=== PATIENT | female | born 1940 | race Caucasian/White ===

== ENCOUNTER → 2018-02-01 | Outpatient (CLI) | payer OTHER ==
--- NOTE | 2018-02-01 13:51 | RAD ---
Lumbar spine, 3 views, 02/01/2018: History: Low back pain There is a mild right convexity thoracolumbar scoliosis. The bony structures are demineralized. The lumbar vertebral heights are well-maintained. There are mild scattered marginal spurs. There are moderate degenerative changes involving the facet joints in the lower lumbar spine. Aortic calcific plaquing is present. IMPRESSION: 1. Demineralization. 2. Lumbar scoliosis. 3. Mild to moderate degenerative change. 4. No acute bony abnormality is detected.
== END | disposition home or self-care (01) ==
LOC: DXRAD 12:03
PROVIDERS: ATTEND Nurse Practitioner Family
DX: M41.86 Other forms of scoliosis, lumbar region (principal); M47.896 Other spondylosis, lumbar region; M81.8 Other osteoporosis without current pathological fracture
CPT/HCPCS: 72100

== ENCOUNTER → 2018-04-19 | Outpatient (CLI) | payer OTHER ==
[2018-04-19 19:10] LABS: THYROXINE 7.8 ug/dL (4.5-12.0)
== END | disposition home or self-care (01) ==
LOC: LAB 11:26
PROVIDERS: ATTEND General Practice
DX: E03.9 Hypothyroidism, unspecified (principal)
CPT/HCPCS: 36415; 84436; 84443; 84480

== ENCOUNTER → 2019-03-06 | Outpatient (CLI) | payer OTHER ==
--- NOTE | 2019-03-06 16:23 | RAD ---
Examination: Frontal view of the abdomen HISTORY: History of left upper quadrant pain, chronic constipation. COMPARISON: None available FINDINGS: The bibasilar lungs are clear. The bowel gas pattern appears unremarkable. Large amount of stool identified in the colon and rectum. Mild degenerative changes thoracolumbar spine. Mild lumbar scoliosis. IMPRESSION: Large amount of stool identified in the colon and rectum likely constipation. Electronically signed by: Vamshi Mullen MD (03/06/2019 4:21 PM) [place] [id number]
== END | disposition home or self-care (01) ==
LOC: LAB 11:05
PROVIDERS: ATTEND General Practice
DX: K59.09 Other constipation (principal); M47.815 Spondylosis without myelopathy or radiculopathy, thoracolumbar region; M41.86 Other forms of scoliosis, lumbar region
CPT/HCPCS: 74018

== ENCOUNTER → 2020-03-04 | Outpatient (CLI) | payer MEDICARE, MEDICAID ==
--- NOTE | 2020-03-04 09:31 | RAD ---
PELVIS COMPLETE History: Dysuria. Pelvic pain. Comparison: None. Technique: Grayscale and color Doppler imaging of the pelvis was performed using transabdominal technique. Patient refused transvaginal imaging. Findings: The uterus measures 5.2 x 4.6 x 2.3 cm in length. Uterus has an unremarkable appearance. The endometrial stripe measures 2 mm. Small amount of fluid within the endometrial canal. Bilateral ovaries not identified due to positioning and overlying bowel gas. No adnexal masses are seen. No free fluid. IMPRESSION: 1. Minimal nonspecific fluid within the endometrial canal. No significant endometrial thickening. Electronically signed by: Jenaro Sahu DO (03/04/2020 9:28 AM) [id number]
== END | disposition home or self-care (01) ==
LOC: US 08:58
PROVIDERS: ATTEND Family Medicine
DX: R30.0 Dysuria (principal); R10.2 Pelvic and perineal pain
CPT/HCPCS: 76856

== ENCOUNTER → 2020-06-10 | Outpatient (CLI) | payer MEDICARE, MEDICAID ==
--- NOTE | 2020-06-10 15:19 | RAD ---
EXAM: BILATERAL DIGITAL SCREENING MAMMOGRAPHY. HISTORY: Routine mammographic screening. TECHNIQUE: Bilateral full field digital images were obtained in CC and MLO projections. Computer-aided detection was applied. COMPARISON: 06/06/2019. COMPOSITION: B. There are scattered areas of fibroglandular density. FINDINGS: There are no suspicious masses, microcalcifications or architectural distortion. The parenchymal pattern is stable. Coarse and vascular calcifications are benign. BI-RADS CATEGORY 2: Benign. RECOMMENDATION: 1. Routine screening mammography in one year. If mammography demonstrates dense breast tissue (heterogenously dense or extremely dense, category C or D), which could hide abnormalities, and if other risk factors for breast cancer have been identified, supplemental screening tests that may be suggested by the ordering physician may be of benefit. Dense breast tissue, in and of itself, is a relatively common condition. Therefore, this information is not provided to cause undue concern, but rather to raise awareness and to promote discussion with the referring physician regarding the presence of other risk factors, in addition to dense breast tissue. The results of this mammography examination is provided to the patient and referring physician. The patient should contact their referring physician if any questions or concerns exist regarding this report. PQRS compliance statement - Patient information was entered into a reminder system with a target due date for the next mammogram. "Our facility is accredited by the [employer] Mammography [employer]." Electronically signed by: Kaci Farley MD (06/10/2020 3:17 PM) [id number]
== END | disposition home or self-care (01) ==
LOC: MAMMO 10:04
PROVIDERS: ATTEND Family Medicine
DX: Z12.31 Encounter for screening mammogram for malignant neoplasm of breast (principal); N64.89 Other specified disorders of breast
CPT/HCPCS: 77067

== ENCOUNTER → 2021-06-11 | Outpatient (CLI) | payer MEDICARE, MEDICAID ==
--- NOTE | 2021-06-12 09:02 | RAD ---
INDICATION: 80 years of age asymptomatic female patient presents for screening mammography. TECHNIQUE: Bilateral full field craniocaudal and mediolateral oblique images were obtained using dig ital technique and also analyzed with computer-aided detection software. COMPARISON: Prior mammographic imaging 06/10/2020, 06/06/2019, 06/06/2018, 06/01/2017, 05/28/2016. BREAST COMPOSITION: Category D: The breasts are extremely dense. This may lower the sensitivity of m ammography. FINDINGS: Benign calcifications are present. The parenchymal pattern appears stable. No suspicious masses, microcalcifications or architectural distortion is present to suggest malignanc y in either breast. The visualized axillae are unremarkable. IMPRESSION: No mammographic evidence of malignancy. RECOMMENDATION: Annual screening mammography is recommended, unless clinically indicated sooner based on symptoms or change in physical exam. BIRADS 2: BENIGN This study was interpreted with the benefit of Computerized Aided Detection (CAD). ?Your patient's mammogram demonstrates that she has dense breast tissue (breast density category C or D), which could hide abnormalities, and if she has other risk factors for breast cancer that have be en identified, she might benefit from supplemental screening tests that may be suggested by you as he r ordering physician. Dense breast tissue, in and of itself, is a relatively common condition. Theref ore, this information is not provided to cause undue concern, but rather to raise your awareness and to promote discussion with your patient regarding the presence of other risk factors, in addition to dense breast tissue. Your patient's mammography results will be sent to her. Patient information is entered into the reminder system with a target due date for the next screening mammogram. Mammography is the most sensitive method for finding small breast cancers, but it does not detect the m all and is not a substitute for careful clinical examination. A negative mammogram does not negate a clinically suspicious finding and should not result in delay in biopsying a clinically suspicious a bnormality. "Our facility is accredited by the [employer] Mammography Program." Electronically signed by: Luis Felipe Muhammad MD (06/12/2021 9:00 AM) [email or web address]
== END ==
LOC: MAMMO 09:54
PROVIDERS: ATTEND Family Medicine
DX: Z12.31 Encounter for screening mammogram for malignant neoplasm of breast (principal)
CPT/HCPCS: 77067

== ENCOUNTER → 2021-07-10 | Outpatient (CLI) | payer MEDICARE, MEDICAID ==
[~2021-07-10] MED LIST: IOHEXOL 300 MG/ML 75 ML VIAL. IV ONE
--- NOTE | 2021-07-10 14:21 | RAD ---
EXAM: CT ABDOMEN/PELVIS WITH CONTRAST. HISTORY: Abdominal and pelvic pain. TECHNIQUE: Computed tomography of the abdomen and pelvis was performed after the intravenous administ ration of iodinated contrast. One or more of the following individualized dose reduction techniques w ere utilized for this examination: 1. Automated exposure control. 2. Adjustment of the mA and/or kV according to patient size. 3. Use of iterative reconstruction technique. COMPARISON: None. FINDINGS: Lung windows through the visualized portions of the bases reveal small foci of scar like de nsity in the right greater than left bases.. Bone windows reveal no suspicious lesions. A 1.7 x 1.2 cm hypoattenuating lesion in spleen contain small foci of hyperattenuation and suggests a hemangioma. The liver, gallbladder, pancreas and adrenal glands are unremarkable. Bilateral renal cy sts appear benign and measure up to 1 cm on the left. There are no pathologically enlarged lymph nodes. Sigmoid diverticulosis is moderate to severe. No in flammatory changes are seen. Stool throughout the colon is consistent with constipation. There is no evidence of appendicitis. The uterus and ovaries are unremarkable by CT. There is mild vaginal wall thickening. IMPRESSION: 1. Mild vaginal wall thickening may be a normal appearance or reflect inflammation. Correlate with ph ysical examination. 2. Correlate for mild constipation. No inflammatory changes are identified. 3. A 1.7 cm hypoattenuating splenic lesion is likely a benign lesion such as a hemangioma. Ultrasound follow-up could be considered in 3 months if there is persistent concern. Electronically signed by: Kaci Farley MD (07/10/2021 2:18 PM) [facility]
== END ==
LOC: CT 08:30
PROVIDERS: ATTEND Family Medicine
DX: K57.30 Diverticulosis of large intestine without perforation or abscess without bleeding (principal); K59.00 Constipation, unspecified; D73.89 Other diseases of spleen
CPT/HCPCS: 74177; Q9967

== ENCOUNTER → 2021-09-08 | Outpatient (CLI) | payer MEDICARE, MEDICAID ==
[~2021-09-08] MED LIST changes: -IOHEXOL 300 MG/ML 75 ML VIAL. IV ONE; +NORMAL SALINE IV ONE; +SINCALIDE IV ONE
--- NOTE | 2021-09-08 09:36 | RAD ---
EXAM: Abdomen sonogram. HISTORY: Pain and nausea. TECHNIQUE: Sonographic imaging of the abdomen was performed. COMPARISON: CT dated 07/10/2021. FINDINGS: The exam is limited due to bowel gas. The liver is normal in size. No focal hepatic lesion is seen. There is a 5 mm nonmobile bile and nonshadowing echogenic lesion along the gallbladder wall which may be due to a polyp. There are few additional tiny foci along the gallbladder wall which may also be due to polyps or stones. There is no cholecystitis. The common bile duct is normal in caliber . The right kidney measures 8.1 cm [id number]. No solid or cystic renal lesion or hydronephrosis se en. The pancreas and inferior vena cava are partially obscured due to bowel gas. IMPRESSION: 1. Limited exam due to bowel gas. The midline structures are partially obscured. 2. Suspected 5 mm gallbladder polyp. There are few tiny echogenic foci along the gallbladder wall whi ch may be due to additional polyps or cholelithiasis. Follow-up can be performed in 6 months. 3. Right renal atrophy. The previously demonstrated renal cysts are not seen on this exam likely due to small size and study limitations. 4. No convincing acute sonographic finding. Electronically signed by: Skylar Wilcox MD (09/08/2021 9:34 AM) [id number]
--- NOTE | 2021-09-08 11:45 | RAD ---
EXAM: Nuclear hepatobiliary scan. HISTORY: Pain and nausea. TECHNIQUE: Following intravenous administration of 5.5 mCi Tc 99m Choletec, anterior images of the ab domen were obtained at five minute intervals through one hour. Subsequently, 0.77 mcg CCK was adminis tered and additional images to assess gallbladder ejection fraction were obtained. FINDINGS: There is prompt radiotracer uptake by the liver. No focal defect is seen. There is normal e xcretion into the biliary tree. The gallbladder is visualized within 15 minutes and there is free cody w into the duodenum. The gallbladder ejection fraction is 8 percent. IMPRESSION: Decreased gallbladder ejection fraction of 8 percent. Electronically signed by: Skylar Wilcox MD (09/08/2021 11:43 AM) [id number]
== END ==
LOC: US 08:46
PROVIDERS: ATTEND Internal Medicine Gastroenterology
DX: N26.1 Atrophy of kidney (terminal) (principal); R11.0 Nausea
CPT/HCPCS: 76705; 78227; A9537; J2805

== ENCOUNTER 2021-11-15 18:50 | Emergency (ER) | payer MEDICARE, MEDICAID ==
[~2021-11-15] VITALS: Ht 152.4 cm; Wt 37.0 kg
--- NOTE | 2021-11-15 19:57 | PHYS DOC ---
Past History Past Surgical History: Cholecystectomy, Other Additional Past Surgical Histo: cataract Adult General Chief Complaint Chief Complaint: POST-OP PROBLEM HPI HPI Patient is an 81-year-old female presenting with daughter via POV for abdominal pain. She is postop day 1 from routine cholecystectomy that was performed at [facility]. States her surgery was uneventful and she was discharged approximately 3 hours after laparoscopic cholecystectomy with new prescription for Percocet. She has been taking Tylenol and prescribed Percocet for her pain but admits that yesterday evening she started developing distention and generalized midline abdominal pain. She has been passing gas with no formed bowel movement since her surgical intervention. She has been nauseous with increasing level of pain prompting her to come in for evaluation. Denies any other significant medical issues, no prior stomach surgeries Review of Systems Review of Systems Fourteen body systems of review of systems have been reviewed. See HPI for pertinent positives and negative responses, other gaming all other systems are negative, non-pertinent or non-contributory Allergies Allergies Allergies Coded Allergies Type Severity Reaction Last Updated Verified No Known Drug Allergies 07/10/21 No Physical Exam Physical Exam Constitutional: Well developed, thin and appears malnourished, no acute d istress, non-toxic appearance. HENT: Normocephalic, atraumatic, bilateral external ears normal, oropharynx moist, no oral exudates, nose normal. Eyes: PERRLA, EOMI, conjunctiva normal, no discharge. Neck: Normal range of motion, no tenderness, supple, no stridor. Cardiovascular: Heart rate regular, sinus rhythm, no murmurs rubs or gallops Lungs & Thorax: Bilateral breath sounds clear to auscultation Abdomen: Bowel sounds normal, generalized midline tenderness with distention present, patient guarding with rebound tenderness present. No masses, no pulsatile masses. Skin: Warm, dry, no erythema, no rash. Back: No tenderness, no CVA tenderness. Extremities: No tenderness, no cyanosis, no clubbing, ROM intact, no edema. Neurologic: Alert and oriented X 3, grossly normal motor & sensory function, no focal deficits noted. Psychologic: Affect normal, judgement normal, mood normal. Current Patient Data Vital Signs Vital Signs Date Time Temp Pulse Resp B/P (MAP) Pulse Ox O2 Delivery O2 Flow Rate FiO2 11/15/21 19:00 99.6 79 22 135/70 (91) 96 Room Air Lab Results Laboratory Tests Test 11/15/21 21:35 11/15/21 21:40 White Blood Count 8.5 x10^3/uL Red Blood Count 4.00 x10^6/uL Hemoglobin 12.3 g/dL Hematocrit 37.2 % Mean Corpuscular Volume 93 fL Mean Corpuscular Hemoglobin 31 pg Mean Corpuscular Hemoglobin Concent 33 g/dL Red Cell Distribution Width 13.8 % Platelet Count 253 x10^3/uL Neutrophils (%) (Auto) 85 % Lymphocytes (%) (Auto) 10 % Monocytes (%) (Auto) 4 % Eosinophils (%) (Auto) 0 % Basophils (%) (Auto) 1 % Neutrophils # (Auto) 7.3 x10^3uL Lymphocytes # (Auto) 0.8 x10^3/uL Monocytes # (Auto) 0.3 x10^3/uL Eosinophils # (Auto) 0.0 x10^3/uL Basophils # (Auto) 0.1 x10^3/uL Sodium Level 138 mmol/L Potassium Level 4.9 mmol/L Chloride Level 101 mmol/L Carbon Dioxide Level 26 mmol/L Anion Gap 11 Blood Urea Nitrogen 27 mg/dL Creatinine 1.1 mg/dL Estimated GFR (Cockcroft-Gault) 47.7 BUN/Creatinine Ratio 25 Glucose Level 85 mg/dL Calcium Level 9.6 mg/dL Total Bilirubin 0.5 mg/dL Aspartate Amino Transf (AST/SGOT) 40 U/L Alanine Aminotransferase (ALT/SGPT) 25 U/L Alkaline Phosphatase 59 U/L Total Protein 7.4 g/dL Albumin 3.5 g/dL Albumin/Globulin Ratio 0.9 Influenza Type A (Rapid) Negative Influenza Type B (Rapid) Negative SARS-CoV-2 Antigen (Rapid) Negative Current Medications Medications (Trade) Dose Ordered Sig/Saige Route PRN Reason Start Time Stop Time Status Last Admin Dose Admin Sodium Chloride 1,000 ml @ 75 mls/hr 1X ONCE IV 11/15/21 23:00 11/16/21 12:19 11/15/21 23:15 Fentanyl Citrate (Fentanyl 2ml Vial) 25 mcg 1X ONCE IVP 11/15/21 23:30 11/15/21 23:31 DC 11/15/21 23:26 EKG EKG [] Radiology/Procedures Radiology/Procedures EXAM: CT Abdomen and Pelvis without IV contrast CLINICAL HISTORY: post op cholecystectomy pain, distension COMPARISON: 07/10/2021 TECHNIQUE: Helical CT of the abdomen and pelvis without intravenous contrast. Axial, coronal and sagittal reformatted images were generated. PQRS compliance statement - One or more of the following individualized dose reduction techniques were utilized for this study: 1. Automated exposure control 2. Adjustment of the mA and/or kV according to patient size 3. Use of iterative reconstruction technique FINDINGS: Lack of intravenous contrast limits evaluation of solid organs, vasculature, and lymph nodes. Lower chest: Lung bases are clear. Abdomen and Pelvis: Hepatic hypoattenuation, fatty liver. Cholecystectomy clips are seen. No biliary ductal dilatation. Pancreas, spleen and adrenal glands are unremarkable. Kidneys are mildly atrophic. Left interpolar renal cyst. No hydronephrosis. No hydroureter. No definite renal tract calculus. Bladder is grossly unremarkable. There is moderate free intraperitoneal gas, particularly the upper abdomen. Subcutaneous gas is also seen. Small volume pelvic ascites. Fluid distention of several small bowel loops, not dilated. Moderate colonic stool content. No bowel obstruction. Uterus and adnexa are grossly unremarkable. Hip joint and lower lumbar spine degenerative changes are seen. Symphysis pubis degenerative changes are seen. IMPRESSION: 1. Moderate free intraperitoneal gas. This can be correlated with timing of recent surgery otherwise perforation of a hollow viscus is suspected. 2. Fluid distention of the small bowel without evidence for bowel obstruction, possibly from enteritis. 3. Small volume ascites Heart Score C/O Chest Pain: No Risk Factors: Risk Factors: DM, Current or recent (<one month) smoker, HTN, HLP, family history of CAD, obesity. Risk Scores: Risk Factors: DM, Current or recent (<one month) smoker, HTN, HLP, family history of CAD, obesity. Course & Med Decision Making Course & Med Decision Making ABCs unremarkable HPI physical exam and comprehensive ER work-up concerning for free air in abdomen and patient postop day 1 laparoscopic cholecystectomy I contacted on-call surgeon at [facility] who recommended HIDA scan and transfer for further evaluation. I contacted hospitalist, Dr. Ferrera who agreed to need for transfer and accepted patient I updated patient and daughter at bedside on entirety of ER findings and conversation with [facility] physicians, they were amenable to plan of care as stated in need for hospital transfer. Dragon Disclaimer Dragon Disclaimer This electronic medical record was generated, in whole or in part, using a voice recognition dictation system. Departure Departure: Impression: Primary Impression: Intra-abdominal free air of unknown etiology Additional Impression: S/P cholecystectomy Disposition: [address] [place] [address] ([facility] Admitting Physician: Other (dr ferrera) Condition: STABLE Referrals: DAVI CEJA MD (PCP) Problem Qualifiers HARRIET ZARATE DO Nov 15, 2021 19:57
--- NOTE | 2021-11-15 20:54 | RAD ---
EXAM: CT Abdomen and Pelvis without IV contrast CLINICAL HISTORY: post op cholecystectomy pain, distension COMPARISON: 07/10/2021 TECHNIQUE: Helical CT of the abdomen and pelvis without intravenous contrast. Axial, coronal and sagi ttal reformatted images were generated. PQRS compliance statement - One or more of the following individualized dose reduction techniques wer e utilized for this study: 1. Automated exposure control 2. Adjustment of the mA and/or kV according to patient size 3. Use of iterative reconstruction technique FINDINGS: Lack of intravenous contrast limits evaluation of solid organs, vasculature, and lymph nodes. Lower chest: Lung bases are clear. Abdomen and Pelvis: Hepatic hypoattenuation, fatty liver. Cholecystectomy clips are seen. No biliary ductal dilatation. P ancreas, spleen and adrenal glands are unremarkable. Kidneys are mildly atrophic. Left interpolar sherman al cyst. No hydronephrosis. No hydroureter. No definite renal tract calculus. Bladder is grossly unre markable. There is moderate free intraperitoneal gas, particularly the upper abdomen. Subcutaneous gas is also seen. Small volume pelvic ascites. Fluid distention of several small bowel loops, not dilated. Moderate colonic stool content. No bowel obstruction. Uterus and adnexa are grossly unremarkable. Hip joint and lower lumbar spine degenerativ e changes are seen. Symphysis pubis degenerative changes are seen. IMPRESSION: 1. Moderate free intraperitoneal gas. This can be correlated with timing of recent surgery otherwise perforation of a hollow viscus is suspected. 2. Fluid distention of the small bowel without evidence for bowel obstruction, possibly from enterit is. 3. Small volume ascites Findings discussed with HARRIET ZARATE DO at 11/15/2021 8:51 PM noted cholecystectomy was performed yest omero. Therefore the free air is likely postsurgical. FOR INTERNAL CODING PURPOSES RESULT CODE: (C) Electronically signed by: Luis Felipe Muhammad MD (11/15/2021 8:52 PM) [email or web address]
[2021-11-15 22:01] LABS: BASO # 0.1 x10^3/uL (0.0-0.2); BASO % 1 % (0-3); EOS % 0 % (0-3); HEMATOCRIT 37.2 % (36.0-47.0); HEMOGLOBIN 12.3 g/dL (12.0-15.5); LYMPH # 0.8 x10^3/uL (1.0-4.8); LYMPH % 10 % (24-48); MEAN CORPUSCULAR HEMOGLOBIN 31 pg (25-35); MEAN CORPUSCULAR HGB CONC 33 g/dL (31-37); MEAN CORPUSCULAR VOLUME 93 fL (79-100); MONO # 0.3 x10^3/uL (0.0-1.1); MONO % 4 % (0-9); NEUT # 7.3 x10^3uL (1.8-7.7); NEUT % 85 % (31-73); PLATELET COUNT 253 x10^3/uL (140-400); RED CELL DISTRIBUTION WIDTH 13.8 % (11.5-14.5); WHITE BLOOD COUNT 8.5 x10^3/uL (4.0-11.0)
[2021-11-15 22:10] LABS: CALCIUM 9.6 mg/dL (8.5-10.1); CREATININE 1.1 mg/dL (0.6-1.0); GFR 47.7; POTASSIUM 4.9 mmol/L (3.5-5.1)
[2021-11-15 22:16] LABS: ALBUMIN 3.5 g/dL (3.4-5.0); ALBUMIN/GLOBULIN RATIO 0.9 (1.0-1.7); TOTAL BILIRUBIN 0.5 mg/dL (0.2-1.0); TOTAL PROTEIN 7.4 g/dL (6.4-8.2)
[2021-11-15 22:17] LABS: INFLUENZA A PATIENT NEGATIVE (NEGATIVE); INFLUENZA B PATIENT NEGATIVE (NEGATIVE)
[2021-11-15] MEDS ORDERED: IV NORMAL SALINE 1,000ML 1,000 ML IV ONE (23:00)
[2021-11-15 23:59] VITALS: BP 133/48
== END 2021-11-16 00:45 | disposition short-term general hospital (02) ==
LOC: ER 18:50
DX: K66.8 Other specified disorders of peritoneum (principal); Z90.49 Acquired absence of other specified parts of digestive tract; Z20.822 Contact with and (suspected) exposure to COVID-19
CPT/HCPCS: 74176; 80053; 83605; 85025; 87428; 96361; 96374; 99285; C9803; J3010; J7030; U0003